=== PATIENT | female | born 1975 | race Caucasian/White ===

== ENCOUNTER 2019-02-10 18:52 | Emergency (ER) | payer OTHER ==
[2019-02-10] MEDS ORDERED: HYDROmorphone 0.5 MG/0.5 ML Syringe IM ONE (21:13)
[2019-02-10] MEDS ORDERED: Orphenadrine 100 MG Tab.ER PO STA (21:13)
[2019-02-10] MEDS ORDERED: Ketorolac 60 MG/2 ML SDV IM ONE (21:13)
--- NOTE | 2019-02-10 21:20 | EDM.PDOC ---
ED HPI GENERAL MEDICAL PROBLEM - General Chief Complaint: Back Pain or Injury Stated Complaint: back pain Time Seen by Provider: 02/10/19 21:00 Source of Information: Reports: Patient History Limitations: Reports: No Limitations - History of Present Illness INITIAL COMMENTS - FREE TEXT/NARRATIVE: 43-year-old female presents for evaluation and treatment of low back pain. Patient reports that she was working out at the gym today. She was doing a cycling class which also involved heavy lifting. She states that they did several squats. This seems to have caused her low back pain. She says the pain primarily in her low back. No radiation to her legs or superior back. She denies any numbness or tingling into the legs. No bladder or bowel incontinence. She denies any recent trauma such as falls or motor vehicle accidents. She is reporting pain and difficulty with ambulation. No history of surgery or any significant back problems. No primary care provider. - Related Data Allergies Allergy/AdvReac Type Severity Reaction Status Date / Time No Known Allergies Allergy Verified 02/10/19 20:02 Home Meds: Home Meds Orphenadrine [Norflex] 100 mg PO BID PRN #20 tab 02/10/19 [Rx] Past Medical History - Past Health History Medical/Surgical History: Denies Medical/Surgical History Social & Family History - Tobacco Use Smoking Status *Q: Never Smoker - Caffeine Use Caffeine Use: Reports: None - Recreational Drug Use Recreational Drug Use: No ED ROS GENERAL - Review of Systems Review Of Systems: See Below GI/Abdominal: Denies: Stool Incontinence : Reports: No Symptoms. Denies: Dysuria, Incontinence Musculoskeletal: Reports: Back Pain (low bacl) Neurological: Denies: Numbness, Tingling ED EXAM,LOWER BACK PAIN/INJURY - Physical Exam Exam: See Below Exam Limited By: No Limitations General Appearance: Alert, WD/WN, Mild Distress Respiratory/Chest: No Respiratory Distress, Lungs Clear, Normal Breath Sounds Cardiovascular: Normal Peripheral Pulses, Regular Rate, Rhythm, No Murmur Back Exam: Normal Inspection, Paraspinal Tenderness (bilateral lower thoracic and lumbar spine). No: Vertebral Tenderness Extremities: Normal Inspection Neurological: Alert, Normal Mood/Affect, Normal Dorsiflexion, Normal Plantar Flexion, Normal Gait. No: Straight Leg Raise (L), Straight Leg Raise (R) Psychiatric: Normal Affect, Normal Mood Skin Exam: Warm, Dry, Normal Color Course - Vital Signs Last Recorded V/S: Last Vital Signs Temp 99.4 F 02/10/19 20:00 Pulse 77 02/10/19 20:00 Resp 16 02/10/19 20:00 BP 123/65 02/10/19 20:00 Pulse Ox 96 02/10/19 20:00 - Orders/Labs/Meds Meds: Medications Discontinued Medications Generic Name Dose Route Start Last Admin Trade Name Blakeq PRN Reason Stop Dose Admin Hydromorphone HCl 0.5 mg 02/10/19 21:13 02/10/19 21:38 Dilaudid IM 02/10/19 21:14 0.5 mg ONETIME ONE Administration Ketorolac Tromethamine 60 mg 02/10/19 21:13 02/10/19 21:35 Toradol IM 02/10/19 21:14 60 mg ONETIME ONE Administration Orphenadrine Citrate 100 mg 02/10/19 21:13 02/10/19 21:35 Norflex PO 02/10/19 21:14 100 mg NOW STA Administration - Re-Assessments/Exams Free Text/Narrative Re-Assessment/Exam: 02/10/19 21:18 Patient has already been in the ER for a prolonged period due to us being busy. She is requesting medication and would like to go home. Will treat with norflex, toradol and dilaudid in the ER and discharge home. Discharge instruction as documented. Departure - Departure Time of Disposition: 21:17 Disposition: Home, Self-Care 01 Condition: Fair Clinical Impression: Muscle spasm, Low back pain - Discharge Information *PRESCRIPTION DRUG MONITORING PROGRAM REVIEWED*: No *COPY OF PRESCRIPTION DRUG MONITORING REPORT IN PATIENT NELLI: No Prescriptions: Orphenadrine [Norflex] 100 mg PO BID PRN #20 tab PRN Reason: Muscle Spasm Instructions: Muscle Cramps and Spasms, [id number] Referrals: PCP,None [Primary Care Provider] - Forms: ED Department Discharge Additional Instructions: take the norflex as prescribed 1 tab PO bid prn muscle pain and spasm. This medication may make you drowsy, do not drive or operate machinery until you know how this medication will affect you. Recommend moist heat tot he back. Recommend a topical product such as icy hot or bengay. Recommend OTC ibuprofen or aleve. Do not take more than 3200mg of ibuprofen in one day. Activity as tolerated. Recommend being up and mobile as much as possible. Follow-up with family med if not better in 1 week. Recommend Renae Pinto or Dr. Oconnor at the [facility]. Call [phone] to schedule with one of these providers. Please return to the ER should your symptoms change or worsen.
== END 2019-02-10 21:59 | disposition home or self-care (01) ==
LOC: JD.ED 18:52
DX: M54.5 Low back pain (principal); M62.830 Muscle spasm of back
CPT/HCPCS: 96372; 99283; A9270; J1170; J1885

== ENCOUNTER 2024-08-02 14:57 | Inpatient (IN) | payer BC, OTHER ==
[2024-08-02] MEDS ORDERED: Sodium Chloride 0.9% 10 ML Syringe FLUSH PRN (16:19)
[2024-08-02 17:11] LABS: BASOPHILS ABSOLUTE AUTO 0.1 K/mm3 (0.0-0.2); BASOPHILS PERCENT AUTO 0.6 % (0.0-1.0); EOSINOPHILS ABSOLUTE AUTO 0.3 K/mm3 (0.0-0.4); EOSINOPHILS PERCENT AUTO 2.5 % (0.0-6.0); HEMATOCRIT 39.1 % (37.0-47.0); HEMOGLOBIN 13.3 gm/dl (12.0-16.0); IMMATURE GRAN ABSOLUTE AUTO 0.04 K/mm3 (0.00-0.05); IMMATURE GRAN PERCENT AUTO 0.4 % (0.0-0.4); LYMPHOCYTES ABSOLUTE AUTO 1.6 K/mm3 (1.0-4.8); LYMPHOCYTES PERCENT AUTO 15.6 % (24.0-44.0); MEAN CORPUSCULAR HEMOGLOBIN 32.2 pg (28.0-32.0); MEAN CORPUSCULAR VOLUME 94.7 fl (83.0-99.0); MEAN PLATELET VOLUME 9.9 fl (9.4-12.3); MONOCYTES ABSOLUTE AUTO 0.7 K/mm3 (0.0-0.8); MONOCYTES PERCENT AUTO 7.1 % (0.0-8.0); NEUTROPHILS ABSOLUTE AUTO 7.7 K/mm3 (1.8-7.7); NEUTROPHILS PERCENT AUTO 73.8 % (41.0-71.0); PLATELET COUNT,PLT 334 K/mm3 (150-400); RED BLOOD CELL COUNT 4.13 M/mm3 (4.10-5.30); WHITE BLOOD CELL COUNT,WBC 10.37 K/mm3 (3.9-11.3)
[2024-08-02] MEDS ORDERED: Ketorolac 30 MG/ML SDV IM PRN (17:22)
[2024-08-02 17:50] LABS: A/G RATIO 0.9 (1-2); ALBUMIN 3.4 g/dl (3.4-5.0); BILIRUBIN TOTAL 0.5 mg/dL (0.2-1.0); BUN/CREATININE RATIO 12.9 (14-18); CREATININE 0.7 mg/dL (0.55-1.02); EST CRCL DRUG DOSING (CG) 83.03 mL/min
[2024-08-02] MEDS: Piperacillin/Tazobactam 4.5 GM in Sodium Chloride 0.9% 100 ML IV ONE (18:27)
[2024-08-02] MEDS: Heparin Sodium 5,000 Units/ML Vial SUBCUT SCH (18:27)
[2024-08-02] MEDS: Sodium Chloride 0.9% 1,000 ML IV ONE (18:57)
[2024-08-02] MEDS: Lactated Ringers 1,000 ML IV SCH (21:28)
[2024-08-02 21:48] LABS: APPEARANCE,URINE CLEAR (Clear); BILIRUBIN,URINE NEGATIVE (Negative); COLOR,URINE YELLOW (Yellow); GLUCOSE,URINE NEGATIVE (Negative); KETONES,URINE NEGATIVE (Negative); LEUKOCYTE ESTERASE,URINE NEGATIVE (Negative); NITRITE,URINE NEGATIVE (Negative); OCCULT BLOOD,URINE NEGATIVE (Negative); PROTEIN,URINE NEGATIVE (Negative); UROBILINOGEN,URINE 0.2 (0.2-1.0)
[2024-08-02] MEDS: Piperacillin/Tazobactam 4.5 GM in Sodium Chloride 0.9% 100 ML IV SCH (23:11)
[2024-08-03 04:52] LABS: BASOPHILS ABSOLUTE AUTO 0.1 K/mm3 (0.0-0.2); BASOPHILS PERCENT AUTO 1.2 % (0.0-1.0); EOSINOPHILS ABSOLUTE AUTO 0.2 K/mm3 (0.0-0.4); EOSINOPHILS PERCENT AUTO 3.6 % (0.0-6.0); HEMATOCRIT 34.3 % (37.0-47.0); HEMOGLOBIN 11.7 gm/dl (12.0-16.0); IMMATURE GRAN ABSOLUTE AUTO 0.03 K/mm3 (0.00-0.05); IMMATURE GRAN PERCENT AUTO 0.4 % (0.0-0.4); LYMPHOCYTES ABSOLUTE AUTO 1.8 K/mm3 (1.0-4.8); LYMPHOCYTES PERCENT AUTO 26.6 % (24.0-44.0); MEAN CORPUSCULAR HGB CONC 34.1 g/dl (32.0-36.0); MEAN CORPUSCULAR VOLUME 93.7 fl (83.0-99.0); MEAN PLATELET VOLUME 10.6 fl (9.4-12.3); MONOCYTES ABSOLUTE AUTO 0.7 K/mm3 (0.0-0.8); NEUTROPHILS ABSOLUTE AUTO 3.9 K/mm3 (1.8-7.7); NEUTROPHILS PERCENT AUTO 58.2 % (41.0-71.0); PLATELET COUNT,PLT 245 K/mm3 (150-400); RED BLOOD CELL COUNT 3.66 M/mm3 (4.10-5.30); WHITE BLOOD CELL COUNT,WBC 6.73 K/mm3 (3.9-11.3)
[2024-08-03 05:27] LABS: ANION GAP 12.5 (5-15); CREATININE 0.7 mg/dL (0.55-1.02); EST CRCL DRUG DOSING (CG) 83.03 mL/min; MAGNESIUM 1.6 mg/dL (1.8-2.4); PHOSPHORUS 3.3 mg/dL (2.6-4.7); POTASSIUM,K 3.5 mEq/L (3.5-5.1)
== END 2024-08-03 17:33 | disposition home or self-care (01) | DRG 813 ==
LOC: JD.ED 14:57 → JD.MS 17:22
PROVIDERS: ADMIT Surgery; ATTEND Surgery
DX: K91.71 Accidental puncture and laceration of a digestive system organ or structure during a digestive system procedure (principal); K63.1 Perforation of intestine (nontraumatic); Z79.899 Other long term (current) drug therapy
CPT/HCPCS: 36415; 80048; 80053; 81003; 83605; 83690; 83735; 84100; 85025; 87040; 94760; 99285; J1644; J2543; J3490; J7030; J7120